=== PATIENT | female | born 1960 | race Caucasian/White ===

== ENCOUNTER 2022-04-08 08:14 | Observation (INO) ==
[2022-04-08 08:52] LABS: Basophils % 0.5 %; Eosinophils # 0.3 K/mcL (0.0-0.6); Eosinophils % 4.1 %; Hematocrit 45.5 % (35.3-44.9); Hemoglobin 14.9 g/dL (11.5-15.4); Immature Granulocytes % 0.2 % (0-4); Mean Corpuscular HGB Conc 32.7 g/dL (31.6-35.5); Mean Corpuscular Hemoglobin 29.7 pg (28.0-33.3); Mean Corpuscular Volume 90.6 fL (83.0-100.0); Mean Platelet Volume 10.5 fL (9.4-12.4); Monocytes # 0.6 K/mcL (0.0-1.3); Monocytes % 10.1 %; Neutrophils # 3.5 K/mcL (1.6-8.9); Platelet Count 234 K/mcL (140-400); Red Blood Count 5.02 M/mcL (3.82-4.97); Red Cell Distribution Width 12.8 % (11.5-14.5); Segmented Neutrophils % 54.1 %; White Blood Count 6.4 K/mcL (4.3-11.1)
[2022-04-08 09:10] LABS: BUN/Creatinine Ratio 20 (6-26); Blood Urea Nitrogen 13 mg/dL (8-23); Calcium 9.4 mg/dL (8.6-10.3); Carbon Dioxide 28 mEq/L (23-29); Chloride 106 mEq/L (98-107); Glucose 86 mg/dL (70-105); Osmolality,Calculated 289 (280-300); Potassium 3.7 mEq/L (3.5-5.1); Sodium 140 mEq/L (136-145); Troponin I < 0.03 ng/mL (< 0.04); eGFR For African Americans > 60 (> 60); eGFR For Non-African Americans > 60 (> 60)
[2022-04-08] MEDS ORDERED: Aspirin 81 MG TAB.CHEW PO ONE (09:10)
[2022-04-08] MEDS ORDERED: Naloxone 0.4 MG/ML INJ IVP PRN (10:22)
[2022-04-08] MEDS ORDERED: Isovue-370 500 ML BOTTLE IVP ONE (10:22)
[2022-04-08 10:48] LABS: Chol/HDL Ratio 3.2 (0-4.9); Cholesterol 211 mg/dL (< 200); HDL Cholesterol 66 mg/dL (40-59); LDL Cholesterol,Calculated 125 mg/dL (< 100); Triglycerides 102 mg/dL (< 150)
[2022-04-08 11:12] LABS: Estimated Average Glucose 94 mg/dl; Hemoglobin A1C 4.9 %
[2022-04-08 12:37] LABS: Influenza A PCR Negative (Negative); Influenza B PCR Negative (Negative); Resp. Syncytial Virus PCR Negative (Negative)
[2022-04-08 12:38] LABS: SARS-CoV-2 by PCR (In House) Positive (Negative)
[2022-04-08] MEDS: Ipratropium/Albuterol Neb 3 ML IH SCH (20:26)
[2022-04-08] MEDS: Acetaminophen 325 MG TABLET PO PRN (20:48)
[2022-04-08] MEDS ORDERED: Nitroglycerin 0.4 MG TAB.SUBL SL PRN (20:48)
[2022-04-09] MEDS: Ipratropium/Albuterol Neb 3 ML IH SCH ×4 (00:13→11:41)
[2022-04-09 04:38] LABS: Hematocrit 41.9 % (35.3-44.9); Hemoglobin 14.3 g/dL (11.5-15.4); Mean Corpuscular HGB Conc 34.1 g/dL (31.6-35.5); Mean Corpuscular Hemoglobin 30.4 pg (28.0-33.3); Mean Corpuscular Volume 89.1 fL (83.0-100.0); Mean Platelet Volume 10.9 fL (9.4-12.4); Platelet Count 200 K/mcL (140-400); Red Cell Distribution Width 12.7 % (11.5-14.5); White Blood Count 5.1 K/mcL (4.3-11.1)
[2022-04-09 04:47] LABS: BUN/Creatinine Ratio 23 (6-26); Blood Urea Nitrogen 12 mg/dL (8-23); Calcium 9.1 mg/dL (8.6-10.3); Carbon Dioxide 24 mEq/L (23-29); Chloride 104 mEq/L (98-107); Glucose 84 mg/dL (70-105); Osmolality,Calculated 285 (280-300); Potassium 4.1 mEq/L (3.5-5.1); Sodium 138 mEq/L (136-145); eGFR For African Americans > 60 (> 60); eGFR For Non-African Americans > 60 (> 60)
[2022-04-09] MEDS ORDERED: *HR* Enoxaparin 40 MG/0.4 ML SYRINGE SQ SCH (06:00)
[2022-04-09] MEDS ORDERED: Perflutren Lipid Microsphere 1.3 ML in 0.9 % Sodium Chloride 8.7 ML IVP PRN (08:23)
[2022-04-09] MEDS ORDERED: Aspirin Enteric Coated 81 MG Tablet PO SCH (09:00)
[2022-04-09] MEDS: Acetaminophen 325 MG TABLET PO PRN (09:54)
[2022-04-09 11:47] VITALS: BP 127/82; PULSE 58; TEMP 98.4; O2SAT 97
[2022-04-09] MEDS ORDERED: Ipratropium 1 PUFF INHALER IH PRN (11:54)
== END 2022-04-09 16:24 | disposition home or self-care (01) ==
LOC: EMEROOARM 08:14 → 3BNU 08:14
PROVIDERS: ADMIT Internal Medicine; ATTEND Internal Medicine